=== PATIENT | female | born 1990 | race Caucasian/White ===

== ENCOUNTER 2016-12-02 06:35 | Inpatient (IN) | payer BC, OTHER ==
[2016-12-02 07:29] LABS: Hematocrit 37 % (35-47); Hemoglobin 12.4 g/dl (12.0-16.0); Mean Corpuscular HGB Conc 33 g/dl (31-36); Mean Corpuscular Hemoglobin 31 pg (27-31); Mean Corpuscular Volume 93 fL (80-97); Mean Platelet Volume 9 um3 (7.4-10.4); Red Blood Count 4.02 10^6/ul (4.0-5.4); Red Cell Distribution Width 14 % (10.5-15); White Blood Count 13.3 10^3/ul (3.5-10.8)
[2016-12-02] MEDS ORDERED: ceFOXitin 2 GM IVPREMIX* 2 GM/50 ML BAG IVPB ONE (08:19)
[2016-12-02] MEDS ORDERED: Buffered Lidocaine 1% SYR 3ML* 3 ML/SYR SYRINGE INTRADERM ONE (08:21)
[2016-12-02] MEDS ORDERED: Sodium Citrate/Citric Acid* 15 ML UDC PO ONE (08:21)
[2016-12-02] MEDS ORDERED: Morphine PF AMP (0.5MG/ML)* 5 MG/10 ML AMP ONE (08:25)
[2016-12-02] MEDS ORDERED: Sodium Bicarbonate 8.4% SYR* 10 ML SYRINGE ONE (08:29)
[2016-12-02] MEDS ORDERED: Famotidine IV* 10 MG/ML 2 ML (20 mg) ONE (09:16)
[2016-12-02] MEDS ORDERED: OXYTOCIN* 10 UNITS/ML 1 ML VIAL ONE (09:16)
[2016-12-02] MEDS ORDERED: EPHEDrine (Pressors)* 50 MG/ML VIAL ONE (09:17)
[2016-12-02] MEDS ORDERED: Phenylephrine IV* 40 MCG/ML 10 ML SYRINGE ONE (09:18)
[2016-12-02] MEDS ORDERED: fentaNYL* 50 MCG/ML 2 ML VIAL (100 MCG VIAL) IV PRN (09:26)
[2016-12-02] MEDS ORDERED: Ondansetron INJ* 2 MG/ML VIAL IV PRN ×2 (09:26→09:29)
[2016-12-02] MEDS ORDERED: diPHENhydraMINE IV* 50 MG/ML 1 ml VIAL (BENADRYL) IV PRN (09:29)
[2016-12-02] MEDS ORDERED: HYDROcodone/ACETAMIN 5-325 MG* 1 TAB PO PRN ×2 (09:29)
[2016-12-02] MEDS ORDERED: Naloxone* 0.4 MG/ML 1 ML VIAL IV PRN (09:29)
[2016-12-02] MEDS ORDERED: PROCHLORPERAZINE INJ 5 MG/ML 2 ML VIAL IV PRN (09:29)
[2016-12-02] MEDS ORDERED: Acetaminophen TAB* 325 MG PO PRN (10:24)
[2016-12-02] MEDS ORDERED: Witch Hazel PAD* JAR TOPICAL PRN (10:24)
[2016-12-02] MEDS ORDERED: Dibucaine 1% 28.35 GM TUBE PR PRN (10:24)
[2016-12-02] MEDS ORDERED: Glycerin ADULT SUPP PR PRN (10:24)
[2016-12-02] MEDS ORDERED: Oxytocin in LR* 20 UNITS/1,000 ML BAG IVPB SCH (11:00)
[2016-12-02] MEDS ORDERED: Nalbuphine* 20 MG/ML 1 ML VIAL IV SCH (12:00)
[2016-12-02] MEDS: Acetaminophen TAB* 325 MG PO SCH ×3 (12:01→18:07)
[2016-12-02] MEDS: Ketorolac INJ* 30 MG/ML 1 ML VIAL IV SCH ×2 (12:02→18:06)
[2016-12-02] MEDS: Prenatal Vitamin TAB PO SCH (12:27)
[2016-12-02] MEDS: Nalbuphine* 20 MG/ML 1 ML VIAL IV PRN ×2 (15:12→18:06)
[2016-12-02] MEDS: Docusate CAP* 100 MG PO SCH ×2 (16:03→21:11)
[2016-12-02] MEDS: Simethicone TAB* 80 MG TAB.CHEW PO SCH ×3 (16:03→21:11)
[2016-12-03] MEDS: Ketorolac INJ* 30 MG/ML 1 ML VIAL IV SCH ×2 (00:08→19:45)
[2016-12-03] MEDS: Acetaminophen TAB* 325 MG PO SCH (00:17)
[2016-12-03] MEDS: oxyCODONE/Acetamin 5/325 MG* TAB PO PRN ×6 (01:26→23:16)
[2016-12-03] MEDS ORDERED: Ibuprofen TAB* 600 MG ONE (05:28)
[2016-12-03] MEDS: Ibuprofen TAB* 600 MG PO PRN ×3 (05:31→23:59)
[2016-12-03] MEDS: Simethicone TAB* 80 MG TAB.CHEW PO SCH ×4 (08:02→21:01)
[2016-12-03] MEDS: Docusate CAP* 100 MG PO SCH ×3 (08:02→21:01)
[2016-12-03] MEDS: Prenatal Vitamin TAB PO SCH (08:02)
[2016-12-03 08:19] LABS: Hematocrit 34 % (35-47); Hemoglobin 11.2 g/dl (12.0-16.0); Mean Corpuscular HGB Conc 33 g/dl (31-36); Mean Corpuscular Hemoglobin 31 pg (27-31); Mean Corpuscular Volume 94 fL (80-97); Mean Platelet Volume 10 um3 (7.4-10.4); Red Blood Count 3.62 10^6/ul (4.0-5.4); Red Cell Distribution Width 14 % (10.5-15); White Blood Count 14.1 10^3/ul (3.5-10.8)
[2016-12-03] MEDS ORDERED: Ferrous Gluconate TAB* 324 MG TAB PO SCH (09:00)
--- NOTE | 2016-12-03 09:28 | OP ---
DATE OF OPERATION: 12/02/16 - ROOM #[facility]105 DATE OF : 86 SURGEON: Kary Chacon MD DIP TUBE ASSEMBLER MACHINE: JO ANN Patterson ANESTHESIOLOGIST: Dr. Lorenzana. ANESTHESIA: Spinal. PRE-OP DIAGNOSIS: Intrauterine at 39-4/7 weeks, polyhydramnios, large for gestational age, declines induction of labor, desires primary section. POST-OP DIAGNOSIS: Intrauterine at 39-4/7 weeks, polyhydramnios, large for gestational age, declines induction of labor, desires primary section, delivered. OPERATIVE PROCEDURE: Primary low-transverse section with vacuum assistance delivery of head. ESTIMATED BLOOD LOSS: 600 cc. URINE OUTPUT: 400 cc of clear yellow urine. FLUIDS: 2000 cc of crystalloid. FINDINGS: Revealed a vertex male , nonengaged, floating in the pelvis, right occiput transverse. 9# 10 oz. 9 at 1 min 9 at 5 min. No nuchal cord. No meconium. Normal appearing tubes and ovaries bilaterally. Placenta, three vessel cord manually extracted and intact. Uterine cavity without retained membranes or placental tissue. COMPLICATIONS: None apparent. DISPOSITION: Stable to recovery room. DESCRIPTION OF PROCEDURE: The patient was placed in dorsal lithotomy position. The abdomen was prepped and draped in a sterile standard fashion. Anesthesia was tested to appropriate level. [place] protocol for correct procedure, the patient's position was clarified and confirmed. An incision was made two fingerbreadths above the pubic symphysis with the scalpel. This was carried down through the fascia. Fascia was incised in the midline and then the fascial incision was extended laterally and superiorly using curved Vale scissors. Fascia was superiorly and inferiorly from the rectus muscle with blunt and sharp dissection. The peritoneum was then entered sharply. The peritoneal incision was extended laterally, superiorly, and inferiorly while directly visualizing bowel and bladder using Metzenbaum scissors. Bladder blade was inserted and a bladder flap was created through blunt and sharp dissection and Allis was used to tent up. On the lower uterine segment, incision was made with a scalpel. This was carried down through to the membranes. The incision was extended laterally and superiorly using bandage scissors and a small amniotomy was created for drainage of clear fluid, approximately a 1000 cc of amniotic fluid was removed. The head was noted to be floating upon amniotomy and to be in the ROT position. At that point an attempt was made at delivery of the head and a vacuum was placed to help with delivery of the head. The anterior and then posterior shoulders were delivered. The cord was then doubly clamped and cut and the infant was handed off the waiting transmission operator. The appropriate cord blood was obtained. The placenta was then manually extracted and noted to be intact with three vessel cord with normal appearance. The uterus was exteriorized. The tubes and ovaries noted to have a normal appearance. The uterus was wrapped in warm moist laparotomy sponge. Uterine cavity was explored and noted to be free of any membranes or placental tissue. The uterine incision itself was reapproximated in 2 layers, the first layer running locked 0-Vicryl and the second layer running imbricated 0 Vicryl. The uterus was returned intra- abdominally and colic gutters were lavaged. Hemostasis was assured at the hysterotomy site. The peritoneum was then clamped with Rosalind's and the peritoneum was closed with 3-0 Vicryl in a running fashion x1. Subfascial area was visualized after lavage. Hemostasis was assured and the fascia itself was then reapproximated using 0 Vicryl x2 in a running fashion. Subcu was lavaged. Hemostasis was assured with Bovie coagulation and the Camper's fascia was then reapproximated using 3-0 Vicryl in an interrupted fashion. The skin was then reapproximated using 4-0 Monocryl in a subcuticular fashion. All sponge and instrument, and blade counts were correct throughout the case. The patient tolerated the procedure well and went to recovery room in stable condition. [id number]/[facility] #: [id number] [facility] HOSPITALMariela
[2016-12-04] MEDS: oxyCODONE/Acetamin 5/325 MG* TAB PO PRN ×5 (03:15→20:13)
[2016-12-04] MEDS: Ibuprofen TAB* 600 MG PO PRN ×3 (06:05→18:14)
[2016-12-04] MEDS: Simethicone TAB* 80 MG TAB.CHEW PO SCH ×4 (08:58→20:30)
[2016-12-04] MEDS: Docusate CAP* 100 MG PO SCH ×3 (08:58→20:13)
[2016-12-04] MEDS: Prenatal Vitamin TAB PO SCH (08:58)
[2016-12-04 19:41] VITALS: BP 125/63
[2016-12-05] MEDS: Ibuprofen TAB* 600 MG PO PRN ×2 (00:10→08:35)
[2016-12-05] MEDS: oxyCODONE/Acetamin 5/325 MG* TAB PO PRN ×3 (01:01→09:39)
[2016-12-05] MEDS: Prenatal Vitamin TAB PO SCH (08:35)
[2016-12-05] MEDS: Simethicone TAB* 80 MG TAB.CHEW PO SCH ×2 (08:35→11:58)
[2016-12-05] MEDS: Docusate CAP* 100 MG PO SCH (08:35)
== END 2016-12-05 12:11 | disposition home or self-care (01) | DRG 540 ==
LOC: MCHOB 06:35
PROVIDERS: ADMIT Obstetrics & Gynecology; ATTEND Obstetrics & Gynecology
PROC: 10D00Z1 Extraction of Products of Conception, Low, Open Approach (ICD-10-PCS; principal; 2016-12-02 08:35)
DX: O40.3XX0 Polyhydramnios, third trimester, not applicable or unspecified (principal); F32.9 Major depressive disorder, single episode, unspecified; O99.344 Other mental disorders complicating childbirth; O36.63X0 Maternal care for excessive fetal growth, third trimester, not applicable or unspecified; Z3A.39 39 weeks gestation of pregnancy; Z37.0 Single live birth
CPT/HCPCS: 36415; 85025; 85027; 86850; 86900; 86901; A9270-GY; J1885; J2300; J2590

== ENCOUNTER 2017-09-06 10:36 | Emergency (ER) | payer BC ==
[2017-09-06 12:44] VITALS: BP 114/62
--- NOTE | 2017-09-09 09:46 | UC ---
Vee Moreira Thomas, scribed for Maryse Santo MD on 09/06/17 at 1231 . Skin Complaint HPI - HPI Summary HPI Summary: The pt is a 27 y/o F presenting to Urgent Care c/o pain to the site of a bite injury from breast feeding on her left breast that occurred about a month ago. The pain is constant. The pain is rated 1/10. The pain is aggravated by touch and is alleviated by nothing. She describes repeated re-opening of the site of the wound. The bite site was re-opened recently, prompting a visit to urgent care. The patient has treated the symptoms with OTC lanolin and other moisturizing ointments without relief. Pt sates she took a course of oral anti- fungal meds without improvement. Pt concerned now a bacterial infection. She has an appointment at [facility] later in the week. Not immunocompromised. Continues to breastfeed. Patients medication reviewed this visit. - History of Current Complaint Chief Complaint: UCUpperExtremity Time Seen by Provider: 09/06/17 12:10 Stated Complaint: BREAST COMPLAINT Hx Obtained From: Patient Hx Last Menstrual Period: 02/2016 Onset/Duration: Lasting Weeks - 1 month, Still Present Timing: Constant Current Severity: Mild Pain Intensity: 1 Pain Scale Used: 0-10 Numeric Location: Other - Left breast Character: Pain Aggravating Factor(s): Touch Alleviating Factor(s): Nothing Associated Signs & Symptoms: Positive: Negative Related History: Other: - Bite from 9 month old son - Allergy/Home Medications Allergies/Adverse Reactions: Allergies Allergy/AdvReac Type Severity Reaction Status Date / Time No Known Allergies Allergy Verified 12/02/16 07:47 Review of Systems Constitutional: Other - NEGATIVE: fever Skin: Other - Pain to site of bite on left breast Is Patient Immunocompromised?: No All Other Systems Reviewed And Are Negative: Yes PMH/Surg Hx/FS Hx/Imm Hx Previously Healthy: Yes - NEGATIVE: HTN, DM - Surgical History Surgical History: Yes Surgery Procedure, Year, and Place: 2005 TONSILLECTOMY [facility], d&c 12/09/15 - Family History Known Family History: Negative: Diabetes - Social History Occupation: Works From/At Home Lives: With Family Alcohol Use: None Substance Use Type: None Smoking Status (MU): Former Smoker Amount Used/How Often: 1PPD 2 YRS, THEN CUT TO FEW/WEEK, THEM TOTALLY QUIT 2013 Have You Smoked in the Last Year: No When Did the Patient Quit Smoking/Using Tobacco: 2013 - Immunization History Most Recent Tetanus Shot: UNKNOWN Physical Exam Triage Information Reviewed: Yes Completion Of Physical Exam Limited Due To: Altered Mental Status Appearance: Well-Appearing, No Pain Distress, Well-Nourished Vital Signs: Initial Vital Signs Temp 98.2 F 09/06/17 11:10 Pulse 63 09/06/17 11:10 Resp 18 09/06/17 11:10 BP 109/63 09/06/17 11:10 Pulse Ox 100 09/06/17 11:10 Vital Signs Reviewed: Yes Eye Exam: Normal Eyes: Positive: Conjunctiva Clear ENT Exam: Normal ENT: Positive: Normal ENT inspection, Hearing grossly normal, Pharynx normal, Pharyngeal erythema, Nasal congestion, TMs normal Neck exam: Normal Neck: Positive: Supple, Nontender, No Lymphadenopathy Respiratory Exam: Normal Respiratory: Positive: Chest non-tender, Lungs clear, Normal breath sounds, No respiratory distress, No accessory muscle use Cardiovascular Exam: Normal Cardiovascular: Positive: RRR, No Murmur, Pulses Normal, Brisk Capillary Refill Abdominal Exam: Normal Abdomen Description: Positive: Nontender, No Organomegaly, Soft Bowel Sounds: Positive: Present Musculoskeletal Exam: Normal Musculoskeletal: Positive: Strength Intact Neurological Exam: Normal Neurological: Positive: Alert Psychological Exam: Normal Skin: Positive: Other - Right nipple - pt with mild inflammation of areola. Pt with dry apearing peeling thin tissue layer around areola. no bleeding No discharge, mild TTP Course/Dx - Course Course Of Treatment: Pt with dry, peeling skin on areola right breask following a bite injury. Will treat with both topical antibacterial and anti- fungal. Pt without systemic sx or edema, erthyma or tenderness of breast tissue concerning for infection. Pt with f/u appt This week with PCP - Diagnoses Provider Diagnoses: yeast infection areola Discharge - Discharge Plan Condition: Good Disposition: HOME Prescriptions: Miconazole Nitrate (Topical) [Aloe Desoto Antifungal] 2 % TOPICAL TID #1 oin Mupirocin 2% OINT* [Bactroban 2 % Oint*] 1 applic TOPICAL TID #1 tube Patient Education Materials: and Nipple Soreness (ED) Referrals: Jalyn Clark NP [Primary Care Provider] - Additional Instructions: Apply the ointment to your nipple tissue 3 times a day. Wash off thoroughly with warm soap and water before breast feeding Okay to take Tylenol every 6 hours as needed for discomfort Keep your appointment later this week as scheduled with your primary doctor. Contact your doctor or return with questions or concerns Antibiotic ointment reference: It is not known if mupirocin is present in breast milk. Systemic absorption following topical application is minimal, and significant exposure to a is not expected. If treatment to the breast and/or nipple is needed, the area should be thoroughly washed prior to to limit potential exposure to the infant. According to the manager radio, the decision to breastfeed during therapy should consider the risk of infant exposure, the benefits of to the infant, and benefits of treatment to the mother. Anti-fungal ointment reference: There is no information on the effect of miconazole, butoconazole, clotrimazole , tioconazole, or terconazole on nursing infants, but systemic absorption after maternal vaginal administration is minimal, hence topical use in nursing mothers is reasonable. The documentation as recorded by the Vee mistry Thomas accurately reflects the service I personally performed and the decisions made by Gal rob Laura, MD.
== END 2017-09-06 12:50 | disposition home or self-care (01) ==
LOC: UCEAST 10:36
DX: O91.02 Infection of nipple associated with the puerperium (principal); Z90.89 Acquired absence of other organs; Z87.891 Personal history of nicotine dependence
CPT/HCPCS: 99212; G0463

== ENCOUNTER 2018-02-05 21:03 | Emergency (ER) | payer BC ==
[2018-02-05 21:21] VITALS: BP 108/72
--- NOTE | 2018-02-05 21:55 | UC ---
Nikolai Moreira Nikita, scribed for Juan Carlos Ang MD on 02/05/18 at 2141 . UC General HPI - HPI Summary HPI Summary: This patient is a 27 year old F presenting to [facility] with a chief complaint of generalized joint pain with tenderness since 1700 today. The CC is described as constant and aching. The patient rates the pain 5/10 in severity. Symptoms aggravated by nothing. Symptoms alleviated by nothing. Patient reports R breast pain and swelling since 1000 this morning, body aches, weakness, and fatigue. She reports she had similar sx previously when she had psoriatic arthritis. Patient denies CP, SOB, fever, cough, dysuria, any other urinary symptoms, diarrhea, and constipation. - History of Current Complaint Chief Complaint: UCGeneralIllness Stated Complaint: JOINT PAIN/ NUMBNESS Time Seen by Provider: 02/05/18 21:26 Hx Obtained From: Patient Hx Last Menstrual Period: 3241101 Onset/Duration: Sudden Onset, Lasting Hours, Still Present Onset Severity: Moderate Current Severity: Moderate Pain Intensity: 5 Aggravating: nothing Alleviating: nothing Associated Signs & Symptoms: Positive: Other - Patient reports R breast pain and swelling since 1000 this morning, body aches, weakness, and fatigue. Patient denies CP, SOB, fever, cough, dysuria, any other urinary symptoms, diarrhea, and constipation. - Allergy/Home Medications Allergies/Adverse Reactions: Allergies Allergy/AdvReac Type Severity Reaction Status Date / Time No Known Allergies Allergy Verified 02/05/18 21:22 PMH/Surg Hx/FS Hx/Imm Hx Endocrine History: Other Other Endocrine History: No DM Cardiovascular History: Other Other Cardiovascular History: No CAD Respiratory History: Other Other Respiratory History: No asthma Psychological History: Anxiety, Depression - Surgical History Surgical History: Yes Surgery Procedure, Year, and Place: 2005 TONSILLECTOMY [facility], d&c 12/09/15, c-sec x1, psorriasis, vertigo - Family History Known Family History: Negative: Diabetes Family History: R & n/C - Social History Alcohol Use: None Substance Use Type: None Smoking Status (MU): Former Smoker Amount Used/How Often: 1PPD 2 YRS, THEN CUT TO FEW/WEEK, THEM TOTALLY QUIT 2013 Have You Smoked in the Last Year: No When Did the Patient Quit Smoking/Using Tobacco: 2013 - Immunization History Most Recent Tetanus Shot: UNKNOWN Review of Systems Constitutional: Other - denies fever Respiratory: Other - denies SOB, cough Cardiovascular: Other - denies CP Gastrointestinal: Other - denies constipation, diarrhea Genitourinary: Other - denies dysuria or any other urinary symptoms Musculoskeletal: Other: - body aches, R breast pain, generalized joint pain with tenderness Neurological: Weakness All Other Systems Reviewed And Are Negative: Yes Physical Exam - Summary Physical Exam Summary: VITAL SIGNS: Reviewed. GENERAL: ~Patient is a well-developed and nourished FEMALE who is lying comfortable in the stretcher. ~Patient is not in any acute respiratory distress. Rigors HEAD AND FACE: Normocephalic EYES: PERRLA, EOMI x 2. EARS: Hearing grossly intact. MOUTH: Oropharynx within normal limits. NECK: Supple, trachea is midline, no adenopathy, no JVD, no carotid bruit. CHEST: Operations Lead was present. Tenderness and redness of the L breast consistent with mastitis. LUNGS: Clear to auscultation bilaterally. No wheezing or crackles. CVS: Regular rate and rhythm, S1 and S2 present, no murmurs or gallops appreciated. ABDOMEN: Soft, non-tender. Bowel sounds are normal. No abdominal abnormal pulsations. EXTREMITIES: Full ROM in all major joints, no edema, no cyanosis or clubbing. NEURO: Alert and oriented x 3. No acute neurological deficits. Speech is normal and follows commands. SKIN: Dry, flushed in the face and chest. Triage Information Reviewed: Yes Vital Signs: Initial Vital Signs Temp 98.8 F 02/05/18 21:13 Pulse 68 02/05/18 21:13 Resp 16 02/05/18 21:13 BP 108/72 02/05/18 21:13 Pulse Ox 100 02/05/18 21:13 Vital Signs Reviewed: Yes Course/Dx - Course Course Of Treatment: Pt is having rigors. She is very warm even without fever, so I believe the patient may be developing an infection or sepsis. The patient will be sent to the ED for further assessment and workup. I did not find the source of infection except for opssible mastitis. She is not complaining of anything other than rigors, body aches, weakness, and breast pain. The patient declines ambulance and her cousin will take her to the ED. Plan of care was discussed with the patient, and patient understands and agrees. All questions were answered to patient satisfaction. There were no further complaints or concerns. Patient signed AMA form. I spoke with Dr. Romero about patient going to the ED. - Differential Dx - Multi-Symptom Provider Diagnoses: fever, rule out sepsis Discharge - Sign-Out/Discharge Documenting (check all that apply): Discharge - Discharge Plan Condition: Stable Disposition: HOME Patient Education Materials: Fever in Adults (ED) Referrals: Jalyn Clark APPLICATION SECURITY CONSULTANT [Primary Care Provider] - Additional Instructions: Patent is going to the ED for further assessment . Decline ambulance. - Billing Disposition and Condition Condition: STABLE Disposition: HOME The documentation as recorded by the Nikolai mistry Nikita accurately reflects the service I personally performed and the decisions made by me, Juan Carlos Ang MD.
== END 2018-02-05 21:55 | disposition home or self-care (01) ==
LOC: UCEAST 21:03
DX: R50.9 Fever, unspecified (principal); M25.50 Pain in unspecified joint; N64.4 Mastodynia; M79.1 Myalgia; R53.1 Weakness; R53.83 Other fatigue; N63.0 Unspecified lump in unspecified breast; F41.9 Anxiety disorder, unspecified; F32.9 Major depressive disorder, single episode, unspecified; Z87.891 Personal history of nicotine dependence
CPT/HCPCS: 99212; G0463

== ENCOUNTER 2018-02-05 22:06 | Emergency (ER) | payer BC ==
[2018-02-05] MEDS ORDERED: NS 0.9% 1000 ML* 1,000 ML IV ONE ×2 (22:17→22:42)
[2018-02-05] MEDS ORDERED: Ondansetron INJ* 2 MG/ML VIAL IV ONE (22:17)
[2018-02-05] MEDS ORDERED: Ketorolac INJ* 30 MG/ML 1 ML VIAL IV PUSH ONE ×2 (22:17→22:42)
[2018-02-05 23:19] LABS: ABS Basophils 0 10^3/ul (0-0.2); ABS Eosinophils 0 10^3/ul (0-0.6); ABS Monocytes 0.9 10^3/ul (0-0.8); ABS Neutrophils 9.5 10^3/ul (1.5-7.7); ABS Nucleated RBC 0 10^3/ul; Eosinophil % 0.4 % (0-6); Hematocrit 41 % (35-47); Hemoglobin 13.9 g/dl (12.0-16.0); Lymphocyte % 16.4 % (25-47); Mean Corpuscular HGB Conc 34 g/dl (31-36); Mean Corpuscular Hemoglobin 30 pg (27-31); Mean Corpuscular Volume 87 fL (80-97); Mean Platelet Volume 8.6 um3 (7.4-10.4); Nucleated Red Blood Cells % 0; Platelet Count 243 10^3/ul (150-450); Red Blood Count 4.67 10^6/ul (4.0-5.4); Red Cell Distribution Width 13 % (10.5-15); White Blood Count 12.5 10^3/ul (3.5-10.8)
[2018-02-05 23:22] LABS: Urine Appearance Clear; Urine Blood Negative (Negative); Urine Color Straw; Urine Ketones Negative (Negative); Urine Protein Negative (Negative); Urine Urobilinogen Negative (Negative)
[2018-02-05 23:40] LABS: EGFR Non-African American 88.6 (>60)
[2018-02-06 00:42] VITALS: BP 121/58
[2018-02-06] MEDS ORDERED: NAFCILLIN IVPB ONE (23:45)
[2018-02-06] MEDS ORDERED: NS 0.9% IVPB ONE (23:45)
--- NOTE | 2018-02-07 11:14 | ED ---
Raymond Moreira Rebecca, scribed for Edward Chahal MD on 02/05/18 at 2236 . HPI Febrile Illness - HPI Summary HPI Summary: Pt is a 27 y/o F referred from [facility] who presents to ED c/o fever, chills, fatigue, and R breast pain and swelling. Pain began at 1000 this morning and has improved since onset, only present to palpation. Took Ibuprofen at 1700. Additionally c/o back pain, mild dysuria, arthralgias and bilateral hand tingling. Sx have been waxing and waning since onset. Denies abdominal pain. Pt is breast feeding and her child is 14 months old. PMHx psoriasis. - History of Current Complaint Chief Complaint: EDFever Hx Obtained From: Patient Hx Last Menstrual Period: 3241101 Onset/Duration: Still Present Temperature: 100.6 F Current Severity: Moderate Pain Intensity: 5 Pain Scale Used: 0-10 Numeric Associated Signs and Symptoms: Arthralgia, Chills, Dysuria - mild, Other: - Fatigue, R breast pain and swelling - Allergy/Home Medications Allergies/Adverse Reactions: Allergies Allergy/AdvReac Type Severity Reaction Status Date / Time No Known Allergies Allergy Verified 02/05/18 21:22 PMH/Surg Hx/FS Hx/Imm Hx Endocrine/Hematology History: Reports: Other Endocrine/Hematological Disorders - Hx psoriasis Cardiovascular History: Denies: Hx Pacemaker/ICD History: Reports: Hx Kidney Infection - 2011, STARTED WITH UTI Sensory History: Denies: Hx Hearing Aid Psychiatric History: Reports: Hx Anxiety, Hx Depression Denies: Hx Panic Disorder - Surgical History Surgery Procedure, Year, and Place: 2005 TONSILLECTOMY [facility], d&c 12/09/15, c-sec x1, psorriasis, vertigo Hx Anesthesia Reactions: No Infectious Disease History: No Infectious Disease History: Denies: Traveled Outside the [place] in Last 30 Days - Family History Known Family History: Negative: Diabetes - Social History Alcohol Use: None Hx Substance Use: No Substance Use Type: Reports: None Hx Tobacco Use: Yes Smoking Status (MU): Former Smoker Amount Used/How Often: 1PPD 2 YRS, THEN CUT TO FEW/WEEK, THEM TOTALLY QUIT 2014 Have You Smoked in the Last Year: No Review of Systems Positive: Fever, Chills, Fatigue Negative: Abdominal Pain Positive: dysuria - mild Positive: Arthralgia, Other - R breast pain and swelling, back pain Neurological: Other - Bilateral hand tingling All Other Systems Reviewed And Are Negative: Yes Physical Exam - Summary Physical Exam Summary: Appearance: Well appearing, no pain distress Skin: Warm, dry, reflects adequate perfusion. Outer quadrants of the right breast are not warm. She had medial upper quadrant erythema and tenderness to touch, no left breast erythema. Head/face: normal Eyes: EOMI, ISMAEL ENT: normal Neck: supple, non-tender Respiratory: CTA, breath sounds present Cardiovascular: RRR, pulses symmetrical Abdomen: non-tender, soft Bowel Sounds: present Musculoskeletal: normal, strength/ROM intact Neuro: normal, sensory motor intact, A&Ox3 Triage Information Reviewed: Yes Vital Signs On Initial Exam: Initial Vitals Temp Pulse Resp BP Pulse Ox 100.6 F 79 16 118/69 80 02/05/18 22:16 02/05/18 22:16 02/05/18 22:16 02/05/18 22:16 02/05/18 22:16 Vital Signs Reviewed: Yes Diagnostics - Vital Signs Vital Signs Temp Pulse Resp BP Pulse Ox 02/05/18 22:16 100.6 F 79 16 118/69 80 - Laboratory Lab Results: Lab Results 02/05/18 02/05/18 02/05/18 Range/Units 22:50 22:50 22:50 WBC 12.5 H (3.5-10.8) 10^3/ul RBC 4.67 (4.0-5.4) 10^6/ul Hgb 13.9 (12.0-16.0) g/dl Hct 41 (35-47) % MCV 87 (80-97) fL MCH 30 (27-31) pg MCHC 34 (31-36) g/dl RDW 13 (10.5-15) % Plt Count 243 (150-450) 10^3/ul MPV 8.6 (7.4-10.4) um3 Neut % (Auto) 75.9 (38-83) % Lymph % (Auto) 16.4 L (25-47) % Glynn % (Auto) 7.0 (0-7) % Eos % (Auto) 0.4 (0-6) % Baso % (Auto) 0.3 (0-2) % Absolute Neuts (auto) 9.5 H (1.5-7.7) 10^3/ul Absolute Lymphs (auto) 2.0 (1.0-4.8) 10^3/ul Absolute Monos (auto) 0.9 H (0-0.8) 10^3/ul Absolute Eos (auto) 0 (0-0.6) 10^3/ul Absolute Basos (auto) 0 (0-0.2) 10^3/ul Absolute Nucleated RBC 0 10^3/ul Nucleated RBC % 0 Sodium 137 L (139-145) mmol/L Potassium 3.7 (3.5-5.0) mmol/L Chloride 104 (101-111) mmol/L Carbon Dioxide 22 (22-32) mmol/L Anion Gap 11 (2-11) mmol/L BUN 20 (6-24) mg/dL Creatinine 0.77 (0.51-0.95) mg/dL Est GFR ( Amer) 114.0 (>60) Est GFR (Non-Af Amer) 88.6 (>60) BUN/Creatinine Ratio 26.0 H (8-20) Glucose 92 (70-100) mg/dL Calcium 9.7 (8.6-10.3) mg/dL Urine Color Straw Urine Appearance Clear Urine pH 7.0 (5-9) Ur Specific [place] 1.010 (1.010-1.030) Urine Protein Negative (Negative) Urine Ketones Negative (Negative) Urine Blood Negative (Negative) Urine Nitrate Negative (Negative) Urine Bilirubin Negative (Negative) Urine Urobilinogen Negative (Negative) Ur Leukocyte Esterase Negative (Negative) Urine Glucose Negative (Negative) Result Diagrams: 02/05/18 22:50 02/05/18 22:50 Lab Statement: Any lab studies that have been ordered have been reviewed, and results considered in the medical decision making process. Re-Evaluation - Re-Evaluation First Eval Re-Evaluation Time: 23:57 Change: Improved Comment: Pt is feeling better. Course/Dx - Course Course Of Treatment: Pt with fever, rigors and right sided medial upper quadrant breast redness/tenderness and warmth and hx of . Fluids, nafcillin given here. Started on outpt diclox. F/U PMD. - Febrile Illness Differential Diagnoses: Abscess, Bacteremia, Cellulitis, Other: - mastitis - Diagnoses Provider Diagnoses: Mastitis, Fever Discharge - Sign-Out/Discharge Documenting (check all that apply): Discharge - Discharge - Discharge Plan Condition: Good Disposition: HOME Prescriptions: Dicloxacillin CAP* [Dynapen CAP*] 500 mg PO QID #56 cap Patient Education Materials: Mastitis (ED) Referrals: Jalyn Clark NP [Primary Care Provider] - Additional Instructions: warm compresses on the affected area. Tylenol/ibuprofen for fever. Stay well hydrated. Express milk/feed or pump from the effected side. Return if worse, new symptoms or other concerns. - Billing Disposition and Condition Condition: GOOD Disposition: HOME The documentation as recorded by the Raymond mistry Rebecca accurately reflects the service I personally performed and the decisions made by , Edward Chahal MD.
== END 2018-02-06 00:40 | disposition home or self-care (01) ==
LOC: ED 22:06
DX: N61.0 Mastitis without abscess (principal); R50.9 Fever, unspecified; R53.83 Other fatigue; R30.0 Dysuria; R20.2 Paresthesia of skin; L40.9 Psoriasis, unspecified; Z87.440 Personal history of urinary (tract) infections; F41.9 Anxiety disorder, unspecified; F32.9 Major depressive disorder, single episode, unspecified; Z87.891 Personal history of nicotine dependence
CPT/HCPCS: 36415; 80048; 81003; 85025; 96365; 96375; 99282; J1885